=== PATIENT | male | born 2000 | race Caucasian/White ===

== ENCOUNTER 2021-07-04 08:18 | Outpatient (REF) | payer SELFPAY ==
[2021-07-06 02:08] LABS: COVID-19 RT-PCR UVMMC Result Negative (Negative)
== END 2021-07-04 08:19 | disposition home or self-care (01) ==
LOC: NCHCN 08:18
PROVIDERS: Visit Provider Nurse Practitioner Family
DX: Z20.822 Contact with and (suspected) exposure to COVID-19 (principal)
CPT/HCPCS: U0003

== ENCOUNTER 2021-07-23 15:40 | Outpatient (REF) | payer BC, SELFPAY ==
[2021-07-23 21:48] LABS: Calculated LDL 153 mg/dL (<100); Cholesterol 245 mg/dL (<200); HDL Cholesterol 54 mg/dL (40-60); Triglyceride 193 mg/dL (<150)
== END 2021-07-23 15:41 | disposition home or self-care (01) ==
LOC: NCHCN 15:40
PROVIDERS: Visit Provider Nurse Practitioner Family
DX: Z13.220 Encounter for screening for lipoid disorders (principal)
CPT/HCPCS: 80061

== ENCOUNTER 2023-02-03 09:02 | Outpatient (REF) | payer BC, SELFPAY ==
[2023-02-03 19:53] LABS: ALT 99 U/L (16-63); AST 45 U/L (15-37); Albumin 4.6 g/dL (3.4-5.0); Alkaline Phosphatase 91 U/L (46-116); Anion Gap 6.5 mmol/L (3-11); BUN 12 mg/dL (7-18); Bilirubin, Total 0.5 mg/dL (0.2-1.0); CO2 29.5 mmol/L (21.0-32.0); Calcium 10.1 mg/dL (8.5-10.1); Calculated LDL 199 mg/dL (<100); Chloride 102 mmol/L (98-107); Cholesterol 316 mg/dL (<200); Estimated GFR 108.46 (mL/min/1.73m2); Glucose 105 mg/dL (74-106); HDL Cholesterol 60 mg/dL (40-60); Potassium 4.9 mmol/L (3.5-5.1); Sodium 138 mmol/L (136-145); Total Protein 8.2 g/dL (6.4-8.2); Triglyceride 287 mg/dL (<150)
== END 2023-02-03 09:03 | disposition home or self-care (01) ==
LOC: NCHCN 09:02
PROVIDERS: Visit Provider Nurse Practitioner Family
DX: E78.5 Hyperlipidemia, unspecified (principal)
CPT/HCPCS: 80053; 80061

== ENCOUNTER 2025-05-04 17:41 | Outpatient (REF) | payer BC, SELFPAY ==
[2025-05-08 11:42] LABS: Chlamydia Result Positive (Negative); GC Result Negative (Negative)
== END 2025-05-04 17:42 | disposition home or self-care (01) ==
LOC: NCHCN 17:41
PROVIDERS: Visit Provider Nurse Practitioner Family
DX: A74.9 Chlamydial infection, unspecified (principal)
CPT/HCPCS: 87491; 87591